=== PATIENT | female | born 1995 | race Caucasian/White ===

== ENCOUNTER 2023-11-27 20:25 | Observation (INO) | payer OTHER, SELFPAY ==
[2023-11-27 20:34] VITALS: BMI 24.1
[2023-11-27 20:48] VITALS: BP 113/69
[2023-11-27 21:19] LABS: % Basophils 0.4 % (0-2); % Eosinophils 1.2 % (0-6); % Immature Granulocytes 0.7 % (0-0.5); % Lymphocytes 24.1 % (20.5-51.1); % Monocytes 8.4 % (1.7-9.3); % Neutrophils 65.2 % (42.2-75.2); Absolute Eosinophils 0.1 10^3/uL (0-0.7); Absolute Immature Granulocytes 0.1 10^3/uL (0-0.05); Absolute Lymphocytes 2.2 10^3/uL (1.2-3.4); Absolute Monocytes 0.8 10^3/uL (0.1-0.6); Absolute Neutrophils 5.8 10^3/uL (1.4-6.5); Hematocrit 31.2 % (37.0-47.0); Hemoglobin 11.4 g/dL (12.0-16.0); Mean Corp Hgb Conc. 36.5 g/dL (33.0-37.0); Mean Corpuscular Hgb 31.4 pg (27.0-31.0); Mean Platelet Volume 9.4 fL (7.4-10.4); Nucleated Red Blood Cells % 0 %; Platelet Count 181 10^3/uL (130-400); Red Blood Cell Count 3.63 10^6/uL (4.20-5.40); Red Cell Dist. Width 12.3 % (11.5-14.5); White Blood Cell Count 8.9 10^3/uL (4.8-10.8)
[2023-11-27 21:42] LABS: ALT (SGPT) 18 U/L (0-35); AST (SGOT) 23 U/L (14-36); Albumin 3.3 g/dl (3.5-5.0); Alkaline Phosphatase 94 U/L (38-126); Blood Urea Nitrogen 10 mg/dl (7-17); Calcium 9.1 mg/dl (8.4-10.2); Carbon Dioxide 25 mmol/L (22-30); Chloride 101 mmol/L (98-107); Estimated Creatinine Clearance > 125 ml/min; Glucose 91 mg/dl (70-99); Potassium 3.8 mmol/L (3.5-5.1); Sodium 132 mmol/L (135-145); Total Bilirubin 0.3 mg/dl (0.2-1.3); eGFR > 60.00
== END 2023-11-27 22:10 | disposition home or self-care (01) ==
LOC: LDRP 20:25
PROVIDERS: ADMITTING PHYSICIAN Obstetrics & Gynecology; FAMILY PHYSICIAN Physician Assistant Medical
DX: R10.9 Unspecified abdominal pain (principal); R11.0 Nausea; O99.343 Other mental disorders complicating pregnancy, third trimester; F32.A Depression, unspecified; Z3A.35 35 weeks gestation of pregnancy; F41.9 Anxiety disorder, unspecified; K31.84 Gastroparesis; Z88.0 Allergy status to penicillin; Z88.8 Allergy status to other drugs, medicaments and biological substances; Z91.030 Bee allergy status
CPT/HCPCS: 80053; 85025; G0378

== ENCOUNTER → 2023-12-14 13:32 | Outpatient (REF) | payer OTHER, SELFPAY | LOC: PNTC 13:32 | PROVIDERS: ATTENDING PHYSICIAN Obstetrics & Gynecology | DX: P05.10 Newborn small for gestational age, unspecified weight (principal); O36.5990 Maternal care for other known or suspected poor fetal growth, unspecified trimester, not applicable or unspecified | CPT/HCPCS: 59025; 76816; 76820 ==

== ENCOUNTER → 2023-12-20 11:36 | Outpatient (REF) | payer OTHER, SELFPAY | LOC: PNTC 11:36 | PROVIDERS: ATTENDING PHYSICIAN Obstetrics & Gynecology | DX: O36.5990 Maternal care for other known or suspected poor fetal growth, unspecified trimester, not applicable or unspecified (principal) | CPT/HCPCS: 59025; 76805; 76818; 76820 ==

== ENCOUNTER 2023-12-20 19:34 | Inpatient (IN) | payer OTHER, SELFPAY ==
[2023-12-20 19:51] VITALS: BP 122/79; BMI 25.6
[2023-12-20] MEDS: CYTOTEC 50 MICROGRAM VAG (20:08)
[2023-12-20] MEDS: LR 1000 IV (20:11)
[2023-12-20 20:14] LABS: % Basophils 0.4 % (0-2); % Eosinophils 1.1 % (0-6); % Immature Granulocytes 0.5 % (0-0.5); % Lymphocytes 22.5 % (20.5-51.1); % Monocytes 7.7 % (1.7-9.3); % Neutrophils 67.8 % (42.2-75.2); Absolute Eosinophils 0.1 10^3/uL (0-0.7); Absolute Lymphocytes 1.9 10^3/uL (1.2-3.4); Absolute Monocytes 0.7 10^3/uL (0.1-0.6); Absolute Neutrophils 5.7 10^3/uL (1.4-6.5); Hematocrit 32.6 % (37.0-47.0); Hemoglobin 11.9 g/dL (12.0-16.0); Mean Corp Hgb Conc. 36.5 g/dL (33.0-37.0); Mean Corpuscular Hgb 31.8 pg (27.0-31.0); Mean Corpuscular Volume 87.2 fL (81.0-99.0); Nucleated Red Blood Cells % 0 %; Platelet Count 187 10^3/uL (130-400); Red Blood Cell Count 3.74 10^6/uL (4.20-5.40); Red Cell Dist. Width 12.3 % (11.5-14.5); White Blood Cell Count 8.4 10^3/uL (4.8-10.8)
[2023-12-21] MEDS: ANCEF 10 IV (00:17)
[2023-12-21] MEDS: LR 1000 IV ×2 (00:18→07:03)
[2023-12-21] MEDS: MORPHINE SULFATE 2 MG IV (00:23)
[2023-12-21] MEDS: PHENERGAN 50.5 MG IV (00:23)
[2023-12-21] MEDS: SUBLIMAZE 100 MCG EPIDURAL (01:45)
[2023-12-21] MEDS: FENTANYL/BUPIVACAINE 100 EPIDURAL ×2 (01:46→09:32)
[2023-12-21] MEDS: ANCEF 5 IV (04:20)
[2023-12-21] MEDS: PITOCIN 30 UNITS/NSS 500 ML IV ×2 (04:42→11:45)
[2023-12-21] MEDS: ANCEF IV (12:05)
[2023-12-21] MEDS: TYLENOL 650 MG PO (17:03)
[2023-12-21] MEDS: MOTRIN 600 MG PO ×2 (17:05→23:11)
[2023-12-21] MEDS: ZOFRAN 4 MG IV (20:12)
[2023-12-21] MEDS: FLUSH (NSS) 2 FLUSH IV (20:13)
[2023-12-21] MEDS: MILK OF MAGNESIA 30 ML PO (21:51)
[2023-12-22] MEDS: TYLENOL 650 MG PO ×4 (03:07→20:30)
[2023-12-22 05:25] LABS: Hematocrit 30.5 % (37.0-47.0); Hemoglobin 10.6 g/dL (12.0-16.0)
[2023-12-22] MEDS: MOTRIN 600 MG PO ×2 (08:04→15:41)
[2023-12-22] MEDS: ZYRTEC 10 MG PO (08:04)
[2023-12-22] MEDS: PRENATAL PLUS 1 TABLET PO (08:05)
[2023-12-22] MEDS: SENOKOT-S 1 TABLET PO (08:05)
[2023-12-22] MEDS: FEOSOL 325 MG PO ×2 (08:05→20:30)
[2023-12-22] MEDS: PROZAC 20 MG PO (08:34)
[2023-12-22 16:53] LABS: Syphilis/T. pallidum Ab Reflex Negative (Negative)
[2023-12-22] MEDS: MILK OF MAGNESIA 30 ML PO (22:17)
[2023-12-23] MEDS: FEOSOL 325 MG PO (08:28)
[2023-12-23] MEDS: ZYRTEC 10 MG PO (08:28)
[2023-12-23] MEDS: SENOKOT-S 1 TABLET PO (08:28)
[2023-12-23] MEDS: PRENATAL PLUS 1 TABLET PO (08:28)
[2023-12-23] MEDS: PROZAC 20 MG PO (08:28)
[2023-12-23] MEDS: MOTRIN 600 MG PO (08:33)
[2023-12-23] MEDS: TYLENOL 650 MG PO (08:33)
== END 2023-12-23 12:05 | disposition home or self-care (01) | DRG 807 ==
LOC: LDRP 19:34
PROVIDERS: ADMITTING PHYSICIAN Obstetrics & Gynecology; FAMILY PHYSICIAN Obstetrics & Gynecology
PROC: 3E0P7VZ Introduction of Hormone into Female Reproductive, Via Natural or Artificial Opening (ICD-10-PCS; 2023-12-20)
PROC: 3E033VJ Introduction of Other Hormone into Peripheral Vein, Percutaneous Approach (ICD-10-PCS; 2023-12-20)
PROC: 10E0XZZ Delivery of Products of Conception, External Approach (ICD-10-PCS; 2023-12-21)
PROC: 0KQM0ZZ Repair Perineum Muscle, Open Approach (ICD-10-PCS; 2023-12-21)
DX: O36.5930 Maternal care for other known or suspected poor fetal growth, third trimester, not applicable or unspecified (principal); Z37.0 Single live birth; O76 Abnormality in fetal heart rate and rhythm complicating labor and delivery; O70.1 Second degree perineal laceration during delivery; Z3A.38 38 weeks gestation of pregnancy; O69.81X0 Labor and delivery complicated by cord around neck, without compression, not applicable or unspecified; O99.344 Other mental disorders complicating childbirth; F41.9 Anxiety disorder, unspecified; F32.A Depression, unspecified; O99.824 Streptococcus B carrier state complicating childbirth
CPT/HCPCS: 88307; 85014; 85018; 85025; 86780; 86850; 86900; 86901

== ENCOUNTER 2024-04-17 11:33 | Outpatient (RCR) | payer OTHER, SELFPAY | END 2024-04-17 23:59 | disposition home or self-care (01) | LOC: RPT 11:33 | PROVIDERS: ATTENDING PHYSICIAN Obstetrics & Gynecology; FAMILY PHYSICIAN Physician Assistant Medical | DX: N39.3 Stress incontinence (female) (male) (principal); N39.41 Urge incontinence; R10.2 Pelvic and perineal pain; M62.89 Other specified disorders of muscle; Z73.6 Limitation of activities due to disability; R27.8 Other lack of coordination; M62.81 Muscle weakness (generalized); M62.838 Other muscle spasm | CPT/HCPCS: 97140; 97162; 97530 ==

== ENCOUNTER 2024-05-24 11:00 | Outpatient (RCR) | payer OTHER, SELFPAY | END 2024-05-24 23:59 | disposition home or self-care (01) | LOC: RPT 11:00 | PROVIDERS: ATTENDING PHYSICIAN Obstetrics & Gynecology; FAMILY PHYSICIAN Physician Assistant Medical | DX: N39.3 Stress incontinence (female) (male) (principal); N39.41 Urge incontinence; R10.2 Pelvic and perineal pain; M62.89 Other specified disorders of muscle; Z73.6 Limitation of activities due to disability | CPT/HCPCS: 97140; 97530 ==

== ENCOUNTER 2024-06-21 09:05 | Outpatient (RCR) | payer OTHER, SELFPAY | END 2024-06-21 23:59 | disposition home or self-care (01) | LOC: RPT 09:05 | PROVIDERS: ATTENDING PHYSICIAN Obstetrics & Gynecology; FAMILY PHYSICIAN Physician Assistant Medical | DX: N39.3 Stress incontinence (female) (male) (principal); N39.41 Urge incontinence; R10.2 Pelvic and perineal pain; M62.89 Other specified disorders of muscle; Z73.6 Limitation of activities due to disability; R27.8 Other lack of coordination; M62.81 Muscle weakness (generalized); M62.838 Other muscle spasm | CPT/HCPCS: 97140; 97530 ==

== ENCOUNTER 2024-07-23 13:01 | Outpatient (RCR) | payer OTHER, SELFPAY | END 2024-07-23 23:59 | disposition home or self-care (01) | LOC: RPT 13:01 | PROVIDERS: ATTENDING PHYSICIAN Obstetrics & Gynecology; FAMILY PHYSICIAN Physician Assistant Medical | DX: N39.3 Stress incontinence (female) (male) (principal); N39.41 Urge incontinence; R10.2 Pelvic and perineal pain; M62.89 Other specified disorders of muscle; R27.8 Other lack of coordination; M62.81 Muscle weakness (generalized); M62.838 Other muscle spasm | CPT/HCPCS: 97140; 97530 ==

== ENCOUNTER 2024-08-13 12:06 | Outpatient (RCR) | payer OTHER, SELFPAY | END 2024-08-13 23:59 | disposition home or self-care (01) | LOC: RPT 12:06 | PROVIDERS: ATTENDING PHYSICIAN Obstetrics & Gynecology; FAMILY PHYSICIAN Physician Assistant Medical | DX: N39.3 Stress incontinence (female) (male) (principal); N39.41 Urge incontinence; R10.2 Pelvic and perineal pain; M62.89 Other specified disorders of muscle; Z73.6 Limitation of activities due to disability; R27.8 Other lack of coordination; M62.81 Muscle weakness (generalized); M62.838 Other muscle spasm | CPT/HCPCS: 97140; 97530 ==

== ENCOUNTER 2024-10-10 06:24 | Outpatient (RCR) | payer OTHER, SELFPAY | END 2024-10-10 09:34 | disposition home or self-care (01) | LOC: RPT 06:24 | PROVIDERS: ATTENDING PHYSICIAN Obstetrics & Gynecology; FAMILY PHYSICIAN Physician Assistant Medical | DX: N39.3 Stress incontinence (female) (male) (principal); N39.41 Urge incontinence; R10.2 Pelvic and perineal pain; M62.89 Other specified disorders of muscle; Z73.6 Limitation of activities due to disability; R27.8 Other lack of coordination; M62.81 Muscle weakness (generalized); M62.838 Other muscle spasm | CPT/HCPCS: 97530 ==

== ENCOUNTER 2025-02-06 12:03 | Emergency (ER) | payer OTHER, SELFPAY ==
[2025-02-06 12:07] VITALS: BP 109/82
[2025-02-06 12:21] LABS: % Basophils 0.3 % (0-2); % Eosinophils 0.4 % (0-6); % Immature Granulocytes 0.3 % (0-0.5); % Lymphocytes 7.7 % (20.5-51.1); % Monocytes 5.7 % (1.7-9.3); % Neutrophils 85.6 % (42.2-75.2); Absolute Lymphocytes 0.7 10^3/uL (1.2-3.4); Absolute Monocytes 0.6 10^3/uL (0.1-0.6); Absolute Neutrophils 8.2 10^3/uL (1.4-6.5); Hematocrit 34.4 % (37.0-47.0); Hemoglobin 12.2 g/dL (12.0-16.0); Mean Corp Hgb Conc. 35.5 g/dL (33.0-37.0); Mean Corpuscular Volume 84.7 fL (81.0-99.0); Mean Platelet Volume 9.1 fL (7.4-10.4); Nucleated Red Blood Cells % 0 %; Platelet Count 186 10^3/uL (130-400); Red Blood Cell Count 4.06 10^6/uL (4.20-5.40); Red Cell Dist. Width 12.4 % (11.5-14.5); White Blood Cell Count 9.6 10^3/uL (4.8-10.8)
[2025-02-06 12:37] LABS: ALT (SGPT) 15 U/L (0-35); AST (SGOT) 19 U/L (14-36); Albumin 3.9 g/dl (3.5-5.0); Alkaline Phosphatase 38 U/L (38-126); Blood Urea Nitrogen 5 mg/dl (7-17); Calcium 9.4 mg/dl (8.4-10.2); Carbon Dioxide 25 mmol/L (22-30); Chloride 106 mmol/L (98-107); Glucose 106 mg/dl (70-99); Potassium 4.2 mmol/L (3.5-5.1); Sodium 137 mmol/L (135-145); Total Bilirubin 0.3 mg/dl (0.2-1.3); Total Protein 6.9 g/dl (6.3-8.2); eGFR > 60.00
[2025-02-06 13:03] LABS: TSH Reflex To Free T4 1.75 uIU/ml (0.47-4.68)
--- NOTE | 2025-02-06 14:21 | ED.GENMED ---
History of Present Illness
General
Chief Complaint: Heart Rate Problem
Source: patient
Time Seen by Provider: 02/06/25 14:12
History of Present Illness
History of Present Illness:
29-year-old female G2, P1 currently 13 weeks along presents with restlessness sweats and higher heart rate starting last evening. She has been dealing with morning nausea. She was started on Reglan yesterday. She thinks the symptoms may be
related to the Reglan. Her nausea has improved. Since taking her dose of Reglan last night and waiting here in the emergency room this afternoon her symptoms have been improving. She states her heart rate is back to normal. She was lightheaded
earlier today. No chest pain. No shortness of breath. No leg swelling calf pain. No fever. No other complaints at this time
Past History
Past History
ED Past Medical History: Asthma and Other (Migraines, IBS, gastroparesis, )
ED Past Surgical History: Other (Feeding tube for the gastroparesis but removed)
Social History
Tobacco: Non-smoker
Alcohol: Occasional
Drug: None
Personal: Single
Living: alone
Phy Exam
Physical Exam
Physical Exam:
General: Well-appearing female no acute respiratory distress
HEENT normocephalic atraumatic posterior pharynx subtle erythema no exudate neck is supple no adenopathy
Heart: Regular rate and rhythm
Lungs: Clear no wheeze
Extremities: No cyanosis or edema
Course
Orders/Labs/Results
Orders:
Orders
02/06/25 12:05
EKG [Electrocardiogram (*1)] Urgent
Reason for Study: Palpitations
EKG- Treatment ONCE
02/06/25 12:14
Beta HCG Quantitative Urgent
Is this a screen?: No
Complete Blood Count/With Diff Urgent
Comprehensive Metabolic Panel Urgent
TSH Reflex To Free T4 Urgent
02/06/25 14:21
0.9% Sodium Chloride 1000 ml [Nss] 1,000 ml IV BOLUS
Abnormal Lab Results
02/06/25
12:14
RBC 4.06 L 10^6/uL
(4.20-5.40)
Hct 34.4 L %
(37.0-47.0)
Absolute Neuts (auto) 8.2 H 10^3/uL
(1.4-6.5)
Absolute Lymphs (auto) 0.7 L 10^3/uL
(1.2-3.4)
Neutrophils % 85.6 H %
(42.2-75.2)
Lymphocytes % 7.7 L %
(20.5-51.1)
BUN 5 L mg/dl
(7-17)
Glucose 106 H mg/dl
(70-99)
02/06/25 12:14
02/06/25 12:14
Vital Signs
Initial and Last Documented VS:
Initial Vital Signs
Temp Pulse Resp BP Pulse Ox
98.4 F 102 20 109/82 97
02/06/25 12:07 02/06/25 12:07 02/06/25 12:07 02/06/25 12:07 02/06/25 12:07
Last Documented Vital Signs
Temp Pulse Resp BP Pulse Ox
98.4 F 89 22 109/82 97
02/06/25 12:07 02/06/25 15:15 02/06/25 15:15 02/06/25 12:07 02/06/25 12:07
MDM/Problems Addressed
Differential Diagnosis Includes:
Patient presented with restlessness sweats higher heart rate shortly after taking Reglan for the first time for her nausea. The dose of Reglan was yesterday evening now almost 24 hours after the dose her symptoms have improved. Heart rate is
normal here. EKG shows sinus rhythm with a rate in the 80s. She has been on javascript developer with a rate in the 80s she is not hypoxic. TSH is normal electrolytes and blood count are good. Suspect likely adverse reaction to the Reglan. Will
hydrate. No concern for PE at this time given near resolution of symptoms
*Critical Care Note
Total Time (30-74mins, 75-104mins- exclusive of procedures): Not Applicable
Update Note
Update Note:
Patient feeling better after fluids. I suspect patient's symptoms most likely related to recent Reglan dose. Recommended against use of Reglan in the future. She will stick with Zofran for nausea. Stable for discharge
ED Attending Note
-
Portions of this chart may have been created with voice recognition software.� Occasional wrong word or��sound alike� substitutions may have occurred due to the inherent limitations of voice recognition software.
Discharge Plan
Departure
Patient Disposition: Home (Routine Discharge)
Date of Disposition: 02/06/25
Time of Disposition: 15:45
Patient with high blood pressure during this ER visit?: No
Discharge Problem:
adverse reaction to medication
Prescriptions:
No Action
cetirizine [Zyrtec] 10 mg Tablet
10 mg PO DAILY
magnesium hydroxide [Milk of Magnesia] 400 mg/5 mL Suspension
400 mg PO HS
fluoxetine [Prozac] 20 mg Capsule
20 mg PO DAILY MDD depression/anxiety
prenat.vits,jigar,vef-jman-mzobt Tablet
1 tab PO DAILY
ibuprofen 600 mg Tablet
600 mg PO Q6HPRN PRN (Reason: moderate pain/cramps) Qty: 90 0RF
Referrals:
Joya Wall PA-C [Family Provider] -
Activity Restrictions/Additional Instructions:
Continue with Zofran if needed for nausea. Avoid Reglan. Return if worse otherwise stay hydrated and follow-up with your CHEST PAIN COORDINATOR
Interventions
Interventions:
*Risk Screen - Suicide Last Done: 02/06/25 12:07
*General Assessment Last Done: 02/06/25 12:07
ED- Cardiac Assessment Last Done: 02/06/25 15:10
ED- Pulmonary Assessment Last Done: 02/06/25 15:10
Discharge Date and Time
Print Language: WOLOF
[2025-02-06] MEDS: NSS 1000 IV (14:31)
== END 2025-02-06 16:22 | disposition home or self-care (01) ==
LOC: EMR 12:03
PROVIDERS: Emergency Medicine; EMERGENCY PHYSICIAN Emergency Medicine; FAMILY PHYSICIAN Physician Assistant Medical
DX: O9A.211 Injury, poisoning and certain other consequences of external causes complicating pregnancy, first trimester (principal); R00.8 Other abnormalities of heart beat; T45.0X5A Adverse effect of antiallergic and antiemetic drugs, initial encounter; Z3A.13 13 weeks gestation of pregnancy
CPT/HCPCS: 96360; 99284; 80053; 84443; 84702; 85025; 93005

== ENCOUNTER 2025-06-14 09:08 | Emergency (ER) | payer OTHER, SELFPAY ==
[2025-06-14 09:19] VITALS: BP 106/70
[2025-06-14 09:28] LABS: Glucose - Point of Care 145 mg/dl (70-99)
[2025-06-14 10:12] VITALS: BP 103/74; BP 105/65; BP 111/73; PULSE 74; PULSE 82; PULSE 84
[2025-06-14 10:29] LABS: Hematocrit 32.2 % (37.0-47.0); Hemoglobin 11.3 g/dL (12.0-16.0); Mean Corp Hgb Conc. 35.1 g/dL (33.0-37.0); Mean Corpuscular Volume 89.9 fL (81.0-99.0); Nucleated Red Blood Cells % 0 %; Platelet Count 174 10^3/uL (130-400); Red Cell Dist. Width 12.8 % (11.5-14.5)
[2025-06-14 10:50] LABS: ALT (SGPT) 16 U/L (0-35); AST (SGOT) 19 U/L (14-36); Albumin 3.3 g/dl (3.5-5.0); Alkaline Phosphatase 63 U/L (38-126); Blood Urea Nitrogen 5 mg/dl (7-17); Calcium 8.8 mg/dl (8.4-10.2); Carbon Dioxide 24 mmol/L (22-30); Chloride 106 mmol/L (98-107); Glucose 109 mg/dl (70-99); Potassium 3.8 mmol/L (3.5-5.1); Sodium 134 mmol/L (135-145); Total Protein 5.8 g/dl (6.3-8.2); eGFR > 60.00
[2025-06-14] MEDS: NSS 1000 IV (11:50)
[2025-06-14 12:05] VITALS: BP 105/64
--- NOTE | 2025-06-14 12:38 | ED.GENMED ---
History of Present Illness
General
Chief Complaint: Fainting Sensation
Time Seen by Provider: 06/14/25 10:37
History of Present Illness
History of Present Illness:
30-year-old female at 32 weeks gestation presenting for near syncopal episode. Patient was at work prior to arrival. 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 She suddenly got lightheaded, her vision went black and she sat
down. Her coworkers additionally gave her some water, however she still felt symptomatic, so she was advised to come to the hospital. Upon arrival, notes that she feels much better, asymptomatic. Denies any complications with her .
Reports that she has intermittently had similar symptoms throughout the . She did have breakfast this morning. She denies any chest pain, difficulty breathing. Reports normal movement. Denies any leakage of fluid or abnormal
bleeding. Denies any prior cardiac history. Denies additional medical complaints
Past History
Past History
ED Past Medical History: Asthma and Other (Migraines, IBS, gastroparesis, )
ED Past Surgical History: Other (Feeding tube for the gastroparesis but removed)
Social History
Tobacco: Non-smoker
Alcohol: Occasional
Drug: None
Personal: Single
Living: alone
Phy Exam
Physical Exam
Physical Exam:
General: Well-appearing, no clinical signs of dehydration, nontoxic and in no acute distress
HEENT: protecting airway
Neck: appears supple
CV: Normal heart rate, regular rhythm, no evidence of cyanosis
Resp: No accessory muscle use, no increased work of breathing, lungs clear to auscultation bilaterally
Abd: Gravid abdomen, nontender
Extremities: No deformities, no swelling
Neuro: alert, no focal neurologic deficit
: deferred
Rectal: deferred
Psych: Normal affect
Skin: Intact
Course
Orders/Labs/Results
Orders:
Orders
06/14/25 10:09
Electrocardiogram (*1) Urgent
Reason for Study: Chest Pain
Cardiac Monitoring- Treatment ONCE
EKG- Treatment ONCE
06/14/25 10:23
Complete Blood Count/With Diff Urgent
Comprehensive Metabolic Panel Urgent
06/14/25 11:01
0.9% Sodium Chloride 1000 ml [Nss] 1,000 ml IV BOLUS
Abnormal Lab Results
06/14/25 06/14/25
09: 10:23
RBC 3.58 L 10^6/uL
(4.20-5.40)
Hgb 11.3 L g/dL
(12.0-16.0)
Hct 32.2 L %
(37.0-47.0)
MCH 31.6 H pg
(27.0-31.0)
Absolute Monos (auto) 0.8 H 10^3/uL
(0.1-0.6)
Lymphocytes % 18.0 L %
(20.5-51.1)
Monocytes % 9.9 H %
(1.7-9.3)
Sodium 134 L mmol/L
(135-145)
BUN 5 L mg/dl
(7-17)
Glucose 109 H mg/dl
(70-99)
Total Protein 5.8 L g/dl
(6.3-8.2)
Albumin 3.3 L g/dl
(3.5-5.0)
POC Glucose 145 H mg/dl
(70-99)
06/14/25 10:23
06/14/25 10:23
Vital Signs
Initial and Last Documented VS:
Initial Vital Signs
Temp Pulse Resp BP Pulse Ox
98.7 F 83 16 106/70 100
06/14/25 09:19 06/14/25 09:19 06/14/25 09:19 06/14/25 09:19 06/14/25 09:19
Last Documented Vital Signs
Temp Pulse Resp BP Pulse Ox
98.7 F 80 16 105/64 98
06/14/25 09:19 06/14/25 12:05 06/14/25 12:05 06/14/25 12:05 06/14/25 12:05
MDM/Problems Addressed
MDM/Problems Addressed:
30-year-old female at 32 weeks presenting for near syncopal episode. Vital signs are normal
On exam patient is resting comfortably, no acute distress. She is currently asymptomatic. Vital signs are within normal limits. EKG obtained on arrival, nonischemic, no arrhythmia. Consistent with vasovagal etiology. Occurred after prolonged
standing. Also likely related to status, slight volume depletion. Will screen with laboratory analysis and obtain orthostatic vital signs. Will also heart rate.
12:40 - Labs are unremarkable, normal glucose, electrolyte panel. Orthostatics within normal limits. heart rate is 156. Patient received IV fluids, remains asymptomatic. At this time feel that she is stable for discharge, however with
close neuro follow-up with her athletic equipment manager. Return precautions discussed and patient verbalized understanding
*Pulse Oximetry
SaO2: 98
Oxygen Mode of Delivery: Room air
Patient hypoxic: no
*EKG
Interpreted by ED Provider?: Yes
EKG Intrepretation Date: 06/14/25
EKG Intrepretation Time: 12:42
Interpretation: normal
Heart Rate: 75
Rate: normal
Rhythm: sinus
[place]: normal axis
Interval: normal interval
QRS Pattern: normal QRS
Ischemia: no ischemia
*Critical Care Note
Total Time (30-74mins, 75-104mins- exclusive of procedures): Not Applicable
ED Attending Note
-
Portions of this chart may have been created with voice recognition software.� Occasional wrong word or��sound alike� substitutions may have occurred due to the inherent limitations of voice recognition software.
Discharge Plan
Departure
Patient Disposition: Home (Routine Discharge)
Date of Disposition: 06/14/25
Time of Disposition: 12:44
Patient with high blood pressure during this ER visit?: No
Condition: Good
Discharge Problem:
Vasovagal near-syncope
Instructions: Near Fainting (DC)
Prescriptions:
No Action
cetirizine [Zyrtec] 10 mg Tablet
10 mg PO DAILY
magnesium hydroxide [Milk of Magnesia] 400 mg/5 mL Suspension
400 mg PO HS
fluoxetine [Prozac] 20 mg Capsule
20 mg PO DAILY MDD depression/anxiety
prenat.vits,jigar,kng-peck-vsomh Tablet
1 tab PO DAILY
ibuprofen 600 mg Tablet
600 mg PO Q6HPRN PRN (Reason: moderate pain/cramps) Qty: 90 0RF
Referrals:
Joya Wall PA-C [Family Provider, Family Practice]
Activity Restrictions/Additional Instructions:
You were seen in the emergency department for a near fainting episode
You were found to have reassuring vital signs, laboratory analysis, EKG
Please follow-up closely with your primary care physician as well as your athletic equipment manager.
Return to the emergency department for any worsening of your symptoms, or any development of chest pain, difficulty breathing, abdominal pain with persistent vomiting and inability to tolerate food or liquid by mouth (concern for dehydration),
weakness, headache or confusion, fever greater than 100.4, or any additional symptoms that are concerning to you.
Thank you for choosing [facility] [place].
Interventions
Interventions:
*Risk Screen - Suicide Last Done: 06/14/25 09:19
*General Assessment Last Done: 06/14/25 10:12
*Neglect/Abuse Screening Last Done: 06/14/25 09:19
*ED- Fall Risk Assessment Last Done: 06/14/25 10:12
*ED COVID-19 Vaccine History Last Done: 06/14/25 10:12
ED- Cardiac Assessment Last Done: 06/14/25 10:08
ED- Neurological Assessment Last Done: 06/14/25 10:08
Discharge Date and Time
Print Language: [id number]
== END 2025-06-14 13:01 | disposition home or self-care (01) ==
LOC: EMR 09:08
PROVIDERS: EMERGENCY PHYSICIAN Student in an Organized Health Care Education/Training Program; FAMILY PHYSICIAN Physician Assistant Medical
DX: O99.891 Other specified diseases and conditions complicating pregnancy (principal); R55 Syncope and collapse; O99.513 Diseases of the respiratory system complicating pregnancy, third trimester; J45.909 Unspecified asthma, uncomplicated; O99.613 Diseases of the digestive system complicating pregnancy, third trimester; K58.9 Irritable bowel syndrome, unspecified; Z3A.32 32 weeks gestation of pregnancy
CPT/HCPCS: 99283; 96360; 80053; 82962; 85025; 93005

== ENCOUNTER 2025-07-13 08:33 | Observation (INO) | payer OTHER, SELFPAY ==
[2025-07-13 08:59] VITALS: BP 108/72; BMI 25.6
[2025-07-13] MEDS: ZOFRAN 4 MG IV (09:07)
[2025-07-13] MEDS: PEPCID 20 MG IV (09:07)
[2025-07-13] MEDS: FLUSH (NSS) 1 FLUSH IV (09:11)
[2025-07-13 09:31] LABS: Hematocrit 34.1 % (37.0-47.0); Hemoglobin 12.0 g/dL (12.0-16.0); Mean Corp Hgb Conc. 35.2 g/dL (33.0-37.0); Mean Corpuscular Volume 91.2 fL (81.0-99.0); Platelet Count 182 10^3/uL (130-400); Red Cell Dist. Width 12.7 % (11.5-14.5)
[2025-07-13 09:43] LABS: ALT (SGPT) 15 U/L (0-35); AST (SGOT) 20 U/L (14-36); Albumin 3.5 g/dl (3.5-5.0); Alkaline Phosphatase 95 U/L (38-126); Blood Urea Nitrogen 6 mg/dl (7-17); Calcium 9.1 mg/dl (8.4-10.2); Carbon Dioxide 21 mmol/L (22-30); Chloride 108 mmol/L (98-107); Estimated Creatinine Clearance > 125 ml/min; Glucose 91 mg/dl (70-99); Potassium 4.3 mmol/L (3.5-5.1); Sodium 134 mmol/L (135-145); Total Protein 6.3 g/dl (6.3-8.2); eGFR > 60.00
== END 2025-07-13 10:48 | disposition home or self-care (01) ==
LOC: LDRP 08:33
PROVIDERS: ADMITTING PHYSICIAN Student in an Organized Health Care Education/Training Program
DX: O26.893 Other specified pregnancy related conditions, third trimester (principal); R10.13 Epigastric pain; R10.9 Unspecified abdominal pain; R11.0 Nausea; O99.343 Other mental disorders complicating pregnancy, third trimester; F32.A Depression, unspecified; Z3A.35 35 weeks gestation of pregnancy; Z80.3 Family history of malignant neoplasm of breast; Z82.62 Family history of osteoporosis; Z83.49 Family history of other endocrine, nutritional and metabolic diseases; Z88.0 Allergy status to penicillin; Z88.8 Allergy status to other drugs, medicaments and biological substances; Z91.030 Bee allergy status
CPT/HCPCS: 80053; 82570; 84156; 85027; 86850; 86900; 86901; G0378

== ENCOUNTER 2025-07-21 16:07 | Observation (INO) | payer OTHER, SELFPAY ==
[2025-07-21 16:22] VITALS: BP 107/71; BMI 26.6
[2025-07-21 17:02] LABS: Urine Character Clear (Clear)
[2025-07-21 17:35] LABS: Urine Red Blood Cell 0-2 /HPF (0-2); Urine Squamous Cell >30 /LPF (Few)
== END 2025-07-21 17:41 | disposition home or self-care (01) ==
LOC: LDRP 16:07
PROVIDERS: ADMITTING PHYSICIAN Obstetrics & Gynecology
DX: O23.43 Unspecified infection of urinary tract in pregnancy, third trimester (principal); N39.0 Urinary tract infection, site not specified; Z3A.37 37 weeks gestation of pregnancy; R10.9 Unspecified abdominal pain; O99.343 Other mental disorders complicating pregnancy, third trimester; F32.A Depression, unspecified; Z80.3 Family history of malignant neoplasm of breast; Z83.49 Family history of other endocrine, nutritional and metabolic diseases; Z82.62 Family history of osteoporosis; Z88.0 Allergy status to penicillin; Z88.8 Allergy status to other drugs, medicaments and biological substances; Z91.030 Bee allergy status
CPT/HCPCS: 81003; 81015; 87086; G0378

== ENCOUNTER 2025-08-06 19:45 | Inpatient (IN) | payer OTHER, SELFPAY ==
[2025-08-06 19:54] VITALS: BMI 26.8
[2025-08-06 19:55] VITALS: BP 127/73
[2025-08-06 20:43] LABS: Hematocrit 34.2 % (37.0-47.0); Hemoglobin 11.9 g/dL (12.0-16.0); Mean Corp Hgb Conc. 34.8 g/dL (33.0-37.0); Mean Corpuscular Volume 88.8 fL (81.0-99.0); Nucleated Red Blood Cells % 0 %; Platelet Count 175 10^3/uL (130-400); Red Cell Dist. Width 12.3 % (11.5-14.5)
[2025-08-06] MEDS: CYTOTEC 25 MICROGRAM VAG (21:06)
[2025-08-06] MEDS: TUMS CHEWABLE TABLET 400 MG PO (21:11)
[2025-08-06] MEDS: LR 1000 IV (22:43)
[2025-08-07] MEDS: CYTOTEC 25 MICROGRAM PO ×2 (00:54→05:00)
[2025-08-07] MEDS: LR 1000 IV ×2 (05:28→09:40)
[2025-08-07] MEDS: FENTANYL/BUPIVACAINE 100 EPIDURAL ×2 (06:10→14:39)
[2025-08-07] MEDS: SUBLIMAZE 100 MCG EPIDURAL (06:10)
[2025-08-07] MEDS: ZOFRAN 4 MG IV ×2 (06:43→16:37)
[2025-08-07] MEDS: PITOCIN 30 UNITS/NSS 500 ML IV (11:27)
[2025-08-07] MEDS: CYTOTEC PO ×2 (15:54)
[2025-08-07] MEDS: COLACE 100 MG PO (20:10)
[2025-08-07] MEDS: MOTRIN 600 MG PO (22:27)
[2025-08-08] MEDS: TYLENOL 650 MG PO ×4 (00:10→20:15)
[2025-08-08 03:58] LABS: Hematocrit 31.9 % (37.0-47.0); Hemoglobin 11.1 g/dL (12.0-16.0)
[2025-08-08] MEDS: PROZAC 20 MG PO (08:05)
[2025-08-08] MEDS: COLACE 100 MG PO ×2 (08:05→20:15)
[2025-08-08] MEDS: ZYRTEC 10 MG PO (08:05)
[2025-08-08] MEDS: PRENATAL PLUS 1 TABLET PO (08:05)
[2025-08-08] MEDS: MOTRIN 600 MG PO ×3 (08:06→20:15)
[2025-08-08 12:57] LABS: Syphilis/T. pallidum Ab Reflex Negative (Negative)
[2025-08-08] MEDS: TUMS CHEWABLE TABLET 400 MG PO (23:05)
[2025-08-09] MEDS: MOTRIN 600 MG PO ×2 (02:41→09:02)
[2025-08-09] MEDS: TYLENOL 650 MG PO ×2 (02:41→09:01)
[2025-08-09] MEDS: PRENATAL PLUS 1 TABLET PO (08:16)
[2025-08-09] MEDS: TUMS CHEWABLE TABLET 400 MG PO (08:16)
[2025-08-09] MEDS: PROZAC 20 MG PO (08:16)
[2025-08-09] MEDS: ZYRTEC 10 MG PO (08:16)
[2025-08-09] MEDS: COLACE 100 MG PO (08:17)
== END 2025-08-09 12:45 | disposition home or self-care (01) | DRG 807 ==
LOC: LDRP 19:45
PROVIDERS: Obstetrics & Gynecology; ADMITTING PHYSICIAN Obstetrics & Gynecology; FAMILY PHYSICIAN Obstetrics & Gynecology
PROC: 3E0P7VZ Introduction of Hormone into Female Reproductive, Via Natural or Artificial Opening (ICD-10-PCS; 2025-08-06)
PROC: 3E033VJ Introduction of Other Hormone into Peripheral Vein, Percutaneous Approach (ICD-10-PCS; 2025-08-07)
PROC: 10907ZC Drainage of Amniotic Fluid, Therapeutic from Products of Conception, Via Natural or Artificial Opening (ICD-10-PCS; 2025-08-07)
PROC: 0KQM0ZZ Repair Perineum Muscle, Open Approach (ICD-10-PCS; 2025-08-07)
PROC: 10E0XZZ Delivery of Products of Conception, External Approach (ICD-10-PCS; 2025-08-07)
DX: O69.81X0 Labor and delivery complicated by cord around neck, without compression, not applicable or unspecified (principal); Z37.0 Single live birth; Z3A.39 39 weeks gestation of pregnancy; O70.1 Second degree perineal laceration during delivery
CPT/HCPCS: 85014; 85018; 85025; 86780; 86850; 86900; 86901; 88307

== ENCOUNTER → 2025-09-05 11:13 | Outpatient (REF) | payer OTHER, SELFPAY | LOC: RCS 11:13 | PROVIDERS: ATTENDING PHYSICIAN Internal Medicine Cardiovascular Disease; FAMILY PHYSICIAN Physician Assistant Medical | DX: R06.02 Shortness of breath (principal) | CPT/HCPCS: 93306 ==